=== PATIENT | male | born 1965 ===

== ENCOUNTER 2022-02-06 19:18 | Emergency (ER) | payer OTHER ==
--- OUTSIDE RECORDS SUMMARY | 2022-02-06 19:21 | XMS REPORT | Continuity of Care Document ---
:1965 Author Organization [facility] t Address [address] [place] [address] Care Team Providers Name Role Phone Amberly Brizuela MD Primary Care Physician MICHAEL SMITH Attending Clinician Unavailable Payers Payer Name Policy Type Policy Number Effective Date Expiration Date S ource Problems This patient has no known problems. Allergies, Adverse Reactions, Alerts Allergy Allergy Status Severity Reaction(s) Onset Inactive Treating Comm ents Source Name Type Date Date Clinician Penicill DA Active U 2018-05 [facility] ins 0-05 Clear 00:00: Katz 00 [facility] iodine DA Active U 2018-05 [facility] 0-05 Clear 00:00: Katz 00 [facility] codeine DA Active U 2018-05 [facility] 0-05 Clear 00:00: Katz 00 [facility] Codeine Propensi Active Anaphylaxis 2017-05 Me thodi ty to [facility]-06 st adverse 00:00: Hospita reaction 00 l s to drug Iodine Propensi Active Anaphylaxis 2017-05 Met hodi ty to 2 [facility] adverse 00:00: Hospita reaction 00 l s to drug Penicill Propensi Active Anaphylaxis 2017-05 M ethodi ins ty to 2 st adverse 00:00: Hospita reaction 00 l s to drug Family History Family Member Diagnosis Comments Start Date Stop Date Source Natural sister Diabetes [facility] Natural sister Cancer [facility] Natural father Cancer [facility] Natural mother Diabetes [facility] Paternal grandfather Heart disease [facility] Paternal grandmother Vision loss [facility] Social History Social Habit Start Date Stop Date Quantity Comments Source History of tobacco Smokes tobacco [facility] use daily Hospital Alcohol intake 2019-06-17 2019-06-17 Ex-drinker [facility] 00:00:00 00:00:00 (finding) Hospital Alcohol Comment 2019-06-17 2019-06-17 quit 2018 [facility] dist 00:00:00 00:00:00 Hospital Cigarettes smoked 2018-05-05 2018-05-05 [facility] current (pack per 00:00:00 00:00:00 Hospita l day) - Reported Cigarette 2018-05-05 2018-05-05 [facility] pack-years 00:00:00 00:00:00 Hospital Tobacco use and 2018-05-05 2018-05-05 Former smokeless Met [facility] exposure 00:00:00 00:00:00 tobacco user [facility] Sex Assigned At [birth year] [facility] 00:00:00 00:00:00 Hospital Smoking Status Start Date Stop Date Source Smokes tobacco daily 2018-05-05 00:00:00 [facility] Medications Ordered Filled Start Stop Current Ordering Indication Dosage Frequency Signature Comments Components Source Medication Medication Date Date Medication? Clinician (SIG) Name Name traMADol 2019- Yes [id number] 50mg Q8H Take 50 mg Me thodi (ULTRAM) 50 1-[address] mg tablet 11:19: every 8 Hospi ta 40 (eight) l hours as needed for moderate pain .acute pain. hydrALAZINE 2019-0 Yes 25mg Q6H Take 25 mg Methodi (APRESOLINE 1-[address] ) 25 MG 11:19: every 6 Hospita tablet 40 (six) l hours. For BP 160/90 diazePAM 2019-0 Yes 10mg Q24H Take 10 mg Met hodi (VALIUM) 10 1-[address] MG tablet 11:17: daily as Hosp erik 17 needed for l anxiety. lisinopril 2019-0 Yes 20mg Q.5D Take 20 mg M ethodi (PRINIVIL) 1-[address] 20 mg 11:17: (two) Hospita tablet 17 times a l day. clindamycin 2019-0 Yes 150mg Q.25D Take 150 [facility] (CLEOCIN) 1-[address] 150 MG 11:11: mouth 4 Hospita capsule 28 (four) l times a day. Pt started taking 06/10/19 for 7 days ferrous 2020-0 Yes 325mg QD Take 325 Metho di sulfate 325 1-[address] (65 FE) MG 09:12: mouth Hospit a tablet 35 daily with l breakfast. zolpidem 2020-0 Yes 10mg QD Take 10 mg Met hodi (AMBIEN) 10 1-[address] mg tablet 09:12: nightly as Ho spita 35 needed for l sleep. ibuprofen 2020-0 Yes 600mg Q6H Take 600 Met hodi (ADVIL) 600 1-[address] MG tablet 09:10: mouth Hospita 39 every 6 l (six) hours as needed for mild pain. diphenhydra 2020-0 Yes QD Take by Met hodi mine HCl 1-[address] (ALLERGY 09:06: daily. Hospita ORAL) 16 l pantoprazol 2020-0 Yes 40mg QD Take 40 mg Methodi e 1-[address] (PROTONIX) 09:06: daily. Hospi ta 40 MG EC 16 l tablet Immunizations Ordered Immunization Filled Immunization Date Status Commen ts Source Name Name Pneumococcal 2018-05-05 Completed [facility] Polysaccharide 00:00:00 Hospital Procedures This patient has no known procedures. Plan of Care Planned Activity Planned Date Details Comments Source Future Scheduled 2022-01-23 HEPATITIS B VACCINES Met [facility] Test 22:58:18 (1 of 3 - 3-dose series) [code = HEPATITIS B VACCINES (1 of 3 - 3-dose series)] Future Scheduled 2022-01-23 COVID-19 VACCINE (#1) [facility] Test 22:58:18 [code = COVID-19 VACCINE (#1)] Future Scheduled 2022-01-23 Hepatitis C screening [facility] Test 22:58:18 (procedure) [code = 856885058] Future Scheduled 2022-01-23 COLONOSCOPY SCREENING [facility] Test 22:58:18 [code = COLONOSCOPY SCREENING] Future Scheduled 2022-01-23 SHINGLES VACCINES (1 Met [facility] Test 22:58:18 of 2) [code = SHINGLES VACCINES (1 of 2)] Future Scheduled 2022-01-23 Pneumococcal Vaccine: [facility] Test 22:58:18 Pediatrics (0 to 5 Years) and At-Risk Patients (6 to 64 Years) (2 - PCV) [code = Pneumococcal Vaccine: Pediatrics (0 to 5 Years) and At-Risk Patients (6 to 64 Years) (2 - PCV)] Future Scheduled 2022-01-23 INFLUENZA VACCINE Method [facility] Test 22:58:18 [code = INFLUENZA VACCINE] Encounters Start End Encounter Admission Attending Care Care Encounter Source Date/Time Date/Time Type Type Clinicians Facility Department ID 2019-06-17 2019-06-17 Emergency SARAH, [facility] [id number] [place] 00:00:00 00:00:00 MICHAEL [address] Results Test Description Test Time Test Comments Results Result Comments Source CBC W/AUTO DIFF 2019-02-25 20:19:00 Test Item Value Reference Range Interpretation Comme nts WHITE BLOOD CELL (test code = WBC) 6.72 x10 3/uL 4.5-11.0 N RED BLOOD CELL (test code = RBC) 4.42 x10 6/uL 4.00-5.60 N HEMOGLOBIN (test code = HGB) 18.4 g/dL 12.5-16.9 H HEMATOCRIT (test code = HCT) 49.4 % 37.5-50.7 N MEAN CELL VOLUME (test code = MCV) 111.8 fL 81.0-99.0 H MEAN CELL HGB (test code = MCH) 41.6 pg 27.0-33.0 H MEAN CELL HGB CONCETRATION (test code = MCHC) 37.2 g/dL 33.0-37. 0 H RED CELL DISTRIBUTION WIDTH CV (test code = RDW) 14.6 % 11.5- 14.5 H RED CELL DISTRIBUTION WIDTH SD (test code = RDW-SD) 61.5 fL 37 .0-54.0 H PLATELET COUNT (test code = PLT) 120 x10 3/uL 150-400 L IMMATURE PLATELET FRACTION (test code = IPF) 1.9 % 0.9-11.2 N MEAN PLATELET VOLUME (test code = MPV) 9.3 fL 7.0-9.0 H NEUTROPHIL % (test code = NT%) 66.3 % 56.0-77.0 N IMMATURE GRANULOCYTE % (test code = IG%) 0.1 % 0.0-2.0 N LYMPHOCYTE % (test code = LY%) 23.8 % 14.0-32.0 N MONOCYTE % (test code = MO%) 8.2 % 4.8-9.0 N EOSINOPHIL % (test code = EO%) 0.1 % 0.3-3.7 L BASOPHIL % (test code = BA%) 1.5 % 0.0-2.0 N NUCLEATED RBC % (test code = NRBC%) 0.0 % 0-0 N NEUTROPHIL # (test code = NT#) 4.45 x10 3/uL 2.0-7.6 N IMMATURE GRANULOCYTE # (test code = IG#) 0.01 x10 3/uL 0.00-0.03 N LYMPHOCYTE # (test code = LY#) 1.60 x10 3/uL 1.0-3.8 N MONOCYTE # (test code = MO#) 0.55 x10 3/uL 0.1-0.8 N EOSINOPHIL # (test code = EO#) 0.01 x10 3/uL 0.0-0.2 N BASOPHIL # (test code = BA#) 0.10 x10 3/uL 0.0-0.2 N NUCLEATED RBC # (test code = NRBC#) 0.00 x10 3/uL 0.0-0.1 N MANUAL DIFF REQUIRED (test code = MDIFF) NO RBC [id number] 20:19:00 Test Item Value Reference Range Interpretation Comments ANISOCYTOSIS (test code = ANISO) 1+ MACROCYTOSIS (test code = MACR) 1+ COMPREHENSIVE METABOLIC [id number] 17:59:00 Test Item Value Reference Range Interpretation Comments SODIUM (test code = NA) 135 mEq/L 134-147 N POTASSIUM (test code = 3.6 mEq/L 3.4-5.0 N K) CHLORIDE (test code = 100 mEq/L 100-108 N CL) CARBON DIOXIDE (test 30 mEq/L 21-33 N code = CO2) ANION GAP (test code = 9 0-20 N GAP) GLUCOSE (test code = 89 mg/dL 70-110 N GLU) BLOOD UREA NITROGEN 7 mg/dL 7-18 N (test code = BUN) GLOMERULAR FILTRATION 100.4 90-95 H Units of measure = RATE (test code = GFR) ml/mi n/1.73 m2 CREATININE (test code = 0.8 mg/dL 0.6-1.3 N CREAT) TOTAL PROTEIN (test 8.0 g/dL 6.4-8.2 N code = PROT) ALBUMIN (test code = 3.10 g/dL 3.4-5.0 L ALB) CALCIUM (test code = 8.4 mg/dL 8.0-10.5 N CA) BILIRUBIN TOTAL (test 1.8 MG/DL <1.5 H code = BILT) SGOT/AST (test code = 54 IUnit/L 15-37 H AST) SGPT/ALT (test code = 35 IUnit/L 15-65 N ALT) ALKALINE PHOSPHATASE 123 IUnit/L 20-125 N TOTAL (test code = ALKP) COMPREHENSIVE METABOLIC [id number] 17:42:00 Test Item Value Reference Range Interpretation Comments SODIUM (test code = NA) 135 mEq/L 134-147 N POTASSIUM (test code = K) 3.6 mEq/L 3.4-5.0 N CHLORIDE (test code = CL) 100 mEq/L 100-108 N CARBON DIOXIDE (test code = CO2) 30 mEq/L 21-33 N ANION GAP (test code = GAP) 9 0-20 N GLUCOSE (test code = GLU) 89 mg/dL 70-110 N BLOOD UREA NITROGEN (test code = 7 mg/dL 7-18 N BUN) GLOMERULAR FILTRATION RATE (test 90-95 code = GFR) CREATININE (test code = CREAT) mg/dL 0.6-1.3 TOTAL PROTEIN (test code = PROT) g/dL 6.4-8.2 ALBUMIN (test code = ALB) g/dL 3.4-5.0 CALCIUM (test code = CA) 8.4 mg/dL 8.0-10.5 N BILIRUBIN TOTAL (test code = BILT) MG/DL <1.5 SGOT/AST (test code = AST) IUnit/L 15-37 SGPT/ALT (test code = ALT) IUnit/L 15-65 ALKALINE PHOSPHATASE TOTAL (test IUnit/L 20-125 code = ALKP) - XR CHEST 1 [id number] 17:42:00 FAX: Jimbo Cooper MD [phone] [place]: St: PRE Name: CARMENZA BURR [facility] [place] : 1965 Age/S: 53/M [address] [place] [address] Unit #: [id number] Loc: [place] [address] Phys: Jimbo Stock MD Acct: [id number] Dis Date: Status: PRE ER PHONE #: [phone] Exam Date: 02/25/2019 173 FAX #: Reason: weakness EXAMS: CPT CODE: [id number] XR CHEST 1 V [id number] PROCEDURE: Chest Radiograph. Clinical Indication: Weakness, hypertension. Comparison: None. FINDINGS: The chest shows normal lung volumes without interstitial or airspace opacities, pleural effusions or pneumothorax. The cardiac silhouette is slightly enlarged. Degenerative change involves the thoracic spine. IMPRESSION: 1. No chest radiographic evidence of acute cardiopulmonary disease. SL: [id number] at 4102 Reported and signed by: Sandro Dover M.D.CC: Jimbo Stock MD Technologist: HARDIK Pedersen RT(R) Trnscrd Date/Time/By: 02/25/2019 (678) : By: GuerreroTDVero Orig Print D/T: S: 02/25/2019 (0368) PAGE 1 Signed ReportTROPONIN-I [id number] 17:34:00 Test Item Value Reference Range Interpretation Comments TROPONIN-I RAPID 0.00 ng/mL 0.00-0.08 N Performed b y certified (test code = squaring machine operator at [facility] TROPIRAP) Ctr Negative: < = 0.08 Positive: >= 0. 09An elevated tropon in value alone is not kc fficient todiagnose a my ocardial infarction. Rat her, the patient sclinic al presentation (h istory, physical exam) and ECGshould be us ed in conjunction wit h troponin in thediagnosti c evaluation of s uspected myocardial infa rction. Aserial samplin g protocol is recommended to facilitate the identification of temporal changes in trop onin levels characteristic of NV. CBC W/AUTO [id number] 17:28:00 Test Item Value Reference Range Interpretation Comments WHITE BLOOD CELL (test code = 6.72 x10 3/uL 4.5-11.0 N WBC) RED BLOOD CELL (test code = 4.42 x10 6/uL 4.00-5.60 N RBC) HEMOGLOBIN (test code = HGB) 18.4 g/dL 12.5-16.9 H HEMATOCRIT (test code = HCT) 49.4 % 37.5-50.7 N MEAN CELL VOLUME (test code = 111.8 fL 81.0-99.0 H MCV) MEAN CELL HGB (test code = MCH) 41.6 pg 27.0-33.0 H MEAN CELL HGB CONCETRATION 37.2 g/dL 33.0-37.0 H (test code = MCHC) RED CELL DISTRIBUTION WIDTH CV 14.6 % 11.5-14.5 H (test code = RDW) RED CELL DISTRIBUTION WIDTH SD 61.5 fL 37.0-54.0 H (test code = RDW-SD) PLATELET COUNT (test code = 120 x10 3/uL 150-400 L PLT) IMMATURE PLATELET FRACTION 1.9 % 0.9-11.2 N (test code = IPF) MEAN PLATELET VOLUME (test code 9.3 fL 7.0-9.0 H = MPV) NEUTROPHIL % (test code = NT%) 66.3 % 56.0-77.0 N IMMATURE GRANULOCYTE % (test 0.1 % 0.0-2.0 N code = IG%) LYMPHOCYTE % (test code = LY%) 23.8 % 14.0-32.0 N MONOCYTE % (test code = MO%) 8.2 % 4.8-9.0 N EOSINOPHIL % (test code = EO%) 0.1 % 0.3-3.7 L BASOPHIL % (test code = BA%) 1.5 % 0.0-2.0 N NUCLEATED RBC % (test code = 0.0 % 0-0 N NRBC%) NEUTROPHIL # (test code = NT#) 4.45 x10 3/uL 2.0-7.6 N IMMATURE GRANULOCYTE # (test 0.01 x10 3/uL 0.00-0.03 N code = IG#) LYMPHOCYTE # (test code = LY#) 1.60 x10 3/uL 1.0-3.8 N MONOCYTE # (test code = MO#) 0.55 x10 3/uL 0.1-0.8 N EOSINOPHIL # (test code = EO#) 0.01 x10 3/uL 0.0-0.2 N BASOPHIL # (test code = BA#) 0.10 x10 3/uL 0.0-0.2 N NUCLEATED RBC # (test code = 0.00 x10 3/uL 0.0-0.1 N NRBC#) MANUAL DIFF REQUIRED (test code NO = MDIFF) RBC [id number] 17:28:00 Test Item Value Reference Range Interpretation Comments ANISOCYTOSIS (test code = ANISO) CBC W/AUTO [id number] 17:28:00 Test Item Value Reference Range Interpretation Comments WHITE BLOOD CELL (test code = 6.72 x10 3/uL 4.5-11.0 N WBC) RED BLOOD CELL (test code = 4.42 x10 6/uL 4.00-5.60 N RBC) HEMOGLOBIN (test code = HGB) 18.4 g/dL 12.5-16.9 H HEMATOCRIT (test code = HCT) 49.4 % 37.5-50.7 N MEAN CELL VOLUME (test code = 111.8 fL 81.0-99.0 H MCV) MEAN CELL HGB (test code = MCH) 41.6 pg 27.0-33.0 H MEAN CELL HGB CONCETRATION 37.2 g/dL 33.0-37.0 H (test code = MCHC) RED CELL DISTRIBUTION WIDTH CV 14.6 % 11.5-14.5 H (test code = RDW) RED CELL DISTRIBUTION WIDTH SD 61.5 fL 37.0-54.0 H (test code = RDW-SD) PLATELET COUNT (test code = 120 x10 3/uL 150-400 L PLT) IMMATURE PLATELET FRACTION 1.9 % 0.9-11.2 N (test code = IPF) MEAN PLATELET VOLUME (test code 9.3 fL 7.0-9.0 H = MPV) NEUTROPHIL % (test code = NT%) 66.3 % 56.0-77.0 N IMMATURE GRANULOCYTE % (test 0.1 % 0.0-2.0 N code = IG%) LYMPHOCYTE % (test code = LY%) 23.8 % 14.0-32.0 N MONOCYTE % (test code = MO%) 8.2 % 4.8-9.0 N EOSINOPHIL % (test code = EO%) 0.1 % 0.3-3.7 L BASOPHIL % (test code = BA%) 1.5 % 0.0-2.0 N NUCLEATED RBC % (test code = 0.0 % 0-0 N NRBC%) NEUTROPHIL # (test code = NT#) 4.45 x10 3/uL 2.0-7.6 N IMMATURE GRANULOCYTE # (test 0.01 x10 3/uL 0.00-0.03 N code = IG#) LYMPHOCYTE # (test code = LY#) 1.60 x10 3/uL 1.0-3.8 N MONOCYTE # (test code = MO#) 0.55 x10 3/uL 0.1-0.8 N EOSINOPHIL # (test code = EO#) 0.01 x10 3/uL 0.0-0.2 N BASOPHIL # (test code = BA#) 0.10 x10 3/uL 0.0-0.2 N NUCLEATED RBC # (test code = 0.00 x10 3/uL 0.0-0.1 N NRBC#) MANUAL DIFF REQUIRED (test code NO = MDIFF) RBC [id number] 17:28:00 Test Item Value Reference Range Interpretation Comments ANISOCYTOSIS (test code = ANISO)
[2022-02-06 20:48] LABS: Urine Blood 1+ (Negative); Urine Glucose Trace (Negative); Urine Protein 2+ (Negative); Urine pH 5.5 (5.0-7.0)
--- NOTE | 2022-02-06 21:19 | RAD REPORT ---
EXAM DESCRIPTION: RAD - Chest Single View - 02/06/2022 8:58 pm CLINICAL HISTORY: ABDOMINAL DISTENTION COMPARISON: No comparisons FINDINGS: Lines: None. Lungs: No evidence of edema or pneumonia. Pleural: No significant pleural effusions or pneumothorax. Cardiac: The heart size is within normal limits. Mediastinum: Within normal limits. Bones: No acute fractures. Other: None IMPRESSION: No acute cardiopulmonary disease.
[2022-02-06 21:21] LABS: SARS-CoV-2 Antigen Rapid Res Negative (Negative)
[2022-02-06 21:33] LABS: Lymphocytes % 8.2 % (15.3-44.8); MCV 120.8 fL (80-100); MPV 7.1 fL (7.6-11.3); RBC Red Blood Cell Count 3.06 M/uL (4.33-5.43)
[2022-02-06 21:36] LABS: Protime INR 1.66
[2022-02-06 21:50] LABS: Urine Bacteria <20 /HPF (<20); Urine Crystals Unidentified Few /HPF (None Seen); Urine Mucus 1+ /HPF (None Seen); Urine RBC >50 /HPF (None Seen)
[2022-02-06 22:03] LABS: ALT/SGPT 36 U/L (12-78); AST/SGOT 106 U/L (15-37); Alkaline Phosphatase 222 U/L (45-117); BUN Blood Urea Nitrogen 22 mg/dL (7-18); Bicarbonate 25 mmol/L (21-32); Glomerular Filtration Rate 63 ml/min (=/>90); Glucose Level 105 mg/dL (74-106); Potassium 3.2 mmol/L (3.5-5.1); Protein, Total 9.3 g/dL (6.4-8.2); Sodium Level 135 mmol/L (136-145); Troponin High Sensitivity 4.3 pg/mL (<58.9)
[2022-02-06 22:12] LABS: Bilirubin Total 21.3 mg/dL (0.2-1.0)
[2022-02-06] MEDS ORDERED: FENTANYL CITR 100 MCG/2 ML ONE (23:11)
[2022-02-06] MEDS ORDERED: CEFTRIAXONE 2000 MG/VIAL ONE (23:11)
[2022-02-06] MEDS ORDERED: NA CHLORIDE 0.9% 500 ML ONE (23:11)
[2022-02-06] MEDS ORDERED: NA CHLORIDE 0.9% 100 ML ONE (23:11)
--- NOTE | 2022-02-06 23:15 | RAD REPORT ---
EXAM DESCRIPTION: CTChest Abd Pelvis Wo Con - 02/06/2022 11:03 pm CLINICAL HISTORY: SOB, abdominal distension COMPARISON: No comparisonsNo comparisons TECHNIQUE: CT of the chest, abdomen, and pelvis was performed without contrast. All CT scans are performed using dose optimization technique as appropriate and may include automated exposure control or mA/KV adjustment according to patient size. FINDINGS: Thorax: Chest Wall: No abnormal mass Lungs: No acute abnormality. Pleura: No effusions or pneumothorax. Claire/Mediastinum: No lymphadenopathy. Lower paraesophageal varices. Aorta/Pulmonary Arteries: Unremarkable Heart: Normal size. Multi-vessel coronary artery disease. Abdomen/Pelvis: Liver: Cirrhotic liver morphology with multiple hypoattenuating areas in liver concerning for multifo rell hepatocellular carcinoma but evaluation with contrast is necessary. . Biliary: No biliary ductal dilatation. Cholelithiasis. Stomach: No significant focal abnormality. Duodenum: No significant focal abnormality. Pancreas: No significant abnormality. Spleen: Splenomegaly Adrenal: No suspicious lesions. Kidney/ureter: No hydronephrosis. 13 mm stone in the left kidney. Retroperitoneum: No retroperitoneal adenopathy. Vascular: No aneurysm. Atherosclerosis. Bowel: No significant focal abnormality. Peritoneum: Moderate ascites. Bladder: Grossly unremarkable. Reproductive: No adnexal masses. Bones: No acute fracture. Remote left-sided rib fractures. Other: Mild body wall edema. IMPRESSION: 1. Cirrhosis with evidence of portal hypertension including splenomegaly and moderate as cites. Masslike areas of hypoattenuation in the right hepatic lobe concerning for underlying neoplasm . Evaluation with multiphase hepatic protocol CT or MRI is recommended. This need not be emergent. 2. No acute findings within the chest.
--- NOTE | 2022-02-07 00:01 | EDPHYS ---
Physician Documentation [facility] Name: Gamaliel Burr Age: 56 yrs Sex: Male : 1965 Arrival Date: 02/06/2022 Time: 19:23 Bed 28 Private MD: ED Physician Robi Barboza HPI: 02/06 20:15 This 56 yrs old Unknown Male presents to ER via Ambulatory with complaints of Flank cp Pain, Abdominal Pain. 20:15 The patient presents with abdominal pain in the lower abdomen, abdominal distention cp that is diffuse. Onset: The symptoms/episode began/occurred gradually, and became worse over past several weeks. 20:15 The symptoms do not radiate. Associated signs and symptoms: Pertinent negatives: blood cp in stools, chest pain, constipation, diarrhea, fever, headache, palpitations, vomiting. The symptoms are described as constant. 20:15 Severity of pain: in the emergency department the pain is unchanged despite home cp interventions. 20:15 Patient reports history of alcoholic cirrhosis. Reports last visit with a physician was cp 4 years ago. Quit drinking alcohol about 2 weeks ago. Historical: - Allergies: 19:59 PENICILLINS; vc1 19:59 Codeine; vc1 19:59 Iodine; vc1 - Home Meds: 19:59 lisinopril Oral [Active]; Soma 250 mg Oral tab 2 tab [Active]; Valium 7.5 mg Oral tab vc1 [Active]; - PMHx: 19:59 Myocardial infarction; at 25 YO; Hypertensive disorder; vc1 - Immunization history:: Adult Immunizations up to date. - Social history:: Smoking status: Patient reports the use of cigarette tobacco products, 6-7, Patient uses Quit drinking a few weeks ago, would drink 1/2 gallon every 3-4 days. ROS: 20:20 Constitutional: Negative for body aches, chills, fever, poor PO intake. cp 20:20 Eyes: Negative for injury, pain, redness, and discharge. cp 20:20 Neck: Negative for pain with movement, pain at rest, stiffness. 20:20 Cardiovascular: Positive for edema, Negative for chest pain, palpitations. 20:20 Respiratory: Positive for shortness of breath, Negative for cough, wheezing. 20:20 Abdomen/GI: Positive for abdominal pain, abdominal distension, Negative for vomiting, diarrhea, constipation, black/tarry stool, rectal bleeding. 20:20 Back: Negative for pain at rest, pain with movement. 20:20 Neuro: Negative for altered mental status, dizziness, headache, syncope, weakness. 20:20 All other systems are negative. Exam: 20:25 Constitutional: The patient appears in no acute distress, alert, awake, cp non-diaphoretic, non-toxic, well developed, well nourished, obese, uncomfortable. 20:25 Head/Face: Normocephalic, atraumatic. cp 20:25 Eyes: Periorbital structures: appear normal, Pupils: equal, round, and reactive to light and accomodation, Extraocular movements: intact throughout, Sclera: icterus, is present, Lids and lashes: appear normal, bilaterally. 20:25 ENT: External ear(s): are unremarkable, Nose: is normal, Mouth: Lips: moist, Oral mucosa: pink and intact, moist, Posterior pharynx: Airway: no evidence of obstruction, patent, swelling, is not appreciated, erythema, is not appreciated, exudate, is not appreciated. 20:25 Neck: ROM/movement: is normal, is supple, without pain, no range of motions limitations, no meningismus. 20:25 Chest/axilla: Inspection: normal. 20:25 Cardiovascular: Rate: normal, Rhythm: regular, Edema: ankle edema, that is mild, JVD: is not appreciated. 20:25 Respiratory: the patient does not display signs of respiratory distress, Respirations: normal, no use of accessory muscles, no retractions, labored breathing, is not present, Breath sounds: are clear throughout, no decreased breath sounds, no stridor, no wheezing. 20:25 Abdomen/GI: Inspection: distension, that is severe, Bowel sounds: active, all quadrants, Palpation: soft, in all quadrants, moderate abdominal tenderness, in the right lower quadrant and left lower quadrant, rebound tenderness, is not appreciated, voluntary guarding, is elicited in the right lower quadrant and left lower quadrant. 20:25 Back: pain, is absent, ROM is normal. 20:25 Skin: Appearance: Color: jaundiced, Temperature: warm. 20:25 Neuro: Orientation: to person, place \T\ time. Mentation: is normal, Cerebellar function: is grossly normal, Motor: moves all fours, strength is normal, Sensation: is normal, Gait: is steady, at a normal pace, without difficulty. 21:05 ECG was reviewed by the Attending Physician. Vital Signs: 19:57 BP 129 / 77; Pulse 95; Resp 17; Temp 98.3(O); Pulse Ox 99% ; Height 5 ft. 7 in. (170.18 vc1 cm); Pain 9/10; 20:13 Weight 111.6 kg; mh5 21:11 BP 126 / 78; Pulse 95; Resp 18; Pulse Ox 100% on R/A; tw5 21:30 BP 125 / 77; tw5 21:45 BP 107 / 73; tw5 22:55 BP 134 / 116; Pulse 96; Resp 18; Pulse Ox 100% on R/A; Pain 10/10; tw5 23:51 BP 116 / 66; Pulse 90; Resp 17; Pulse Ox 100% on R/A; hb 02/07 01:05 Pain 8/10; tw5 01:36 Pain 7/10; tw5 02/06 20:13 Body Mass Index 38.53 (111.60 kg, 170.18 cm) [facility] MDM: 02/06 20:08 Patient medically screened. rose mary 21:00 Differential diagnosis: cholecystitis, Cholelithiasis, pancreatitis, SBP. 23:55 Data reviewed: vital signs, nurses notes, lab test result(s), EKG, radiologic studies, cp CT scan, I have discussed the patient's presentation/case with the attending Emergency Department Physician; and as a result, I will transfer patient. 23:55 Test interpretation: by ED physician or midlevel provider: ECG, plain radiologic cp studies. 02/06 20:41 Order name: SARS RAPID; Complete Time: 21:36 [facility] 02/06 20:47 Order name: Blood Culture Adult (2) cp 02/06 20:47 Order name: CBC with Diff; Complete Time: 21:53 02/06 23:20 Interpretation: Normal except: WBC 12.40; RBC 3.06; HGB 13.0; HCT 37.0; MCV 120.8; MCH cp 42.6; RDW 18.1; MPV 7.1; MARIA EUGENIA% 82.4; LYM% 8.2; NEUT A 10.3. 02/06 20:47 Order name: CMP; Complete Time: 22:14 02/06 20:47 Order name: Lactate; Complete Time: 22:44 cp 02/06 22:44 Interpretation: Reviewed. cp 02/06 20:47 Order name: Protime (+inr); Complete Time: 21:38 cp 02/06 20:47 Order name: Ptt, Activated; Complete Time: 21:38 cp 02/06 20:47 Order name: Urine Culture cp 02/06 20:47 Order name: Urine Microscopic Only; Complete Time: 21:53 cp 02/06 20:47 Order name: Troponin High Sensitivity; Complete Time: 22:44 cp 02/06 20:47 Order name: Procalcitonin; Complete Time: 22:44 cp 02/06 20:47 Order name: AMMONIA; Complete Time: 23:52 cp 02/06 20:47 Order name: ETOH Level; Complete Time: 22:44 cp 02/06 20:47 Order name: Tylenol Level; Complete Time: 22:44 cp 02/06 20:47 Order name: Chest Single View XRAY; Complete Time: 21:36 02/06 20:47 Order name: Cardiac monitoring; Complete Time: 21:15 02/06 20:47 Order name: EKG - Nurse/Tech; Complete Time: 21:15 02/06 20:47 Order name: IV Saline Lock - Large Bore; Complete Time: 21:15 02/06 20:47 Order name: Labs collected and sent; Complete Time: 21:15 02/06 20:48 Order name: Urine Dipstick-Ancillary; Complete Time: 21:36 EDMS 02/06 21:36 Interpretation: Normal except: UKET 1+; UBLD 1+; UPROT 2+; UESTR 3+. cp 02/06 20:51 Order name: Urine Dipstick-Ancillary EDMS 02/06 22:47 Order name: CT Chest Abdomen Pelvis W/O Contrast; Complete Time: 23:18 cp 02/06 22:54 Order name: Lipase; Complete Time: 23:18 02/06 22:54 Order name: LAB Add On cp 02/07 01:29 Order name: Lactate Sepsis 2 HR Follow-up EDMS 02/06 20:47 Order name: O2 Per Protocol; Complete Time: 21:15 02/06 20:47 Order name: O2 Sat Monitoring; Complete Time: 21:15 02/06 20:47 Order name: Urine Dipstick-Ancillary (obtain specimen); Complete Time: 20:48 cp EC:05 Rate is 93 beats/min. Rhythm is regular. CA interval is normal. QRS interval is normal. cp QT interval is prolonged at 382 msec. Interpreted by me. Reviewed by me. Administered Medications: 23:14 Drug: Rocephin (cefTRIAXone) 2 grams Route: IV; Rate: calculated rate; Site: right tw5 antecubital; 02/07 01:05 Follow up: Response: No adverse reaction; IV Status: Completed infusion; IV Intake: tw5 100ml 02/06 23:14 Drug: NS 0.9% 1000 ml Route: IV; Rate: 500 ml/hr; Site: right antecubital; tw5 02/07 01:05 Follow up: Response: No adverse reaction; IV Status: Completed infusion tw5 02/06 23:14 Drug: fentaNYL (PF) 25 mcg Route: IVP; Site: right antecubital; tw5 23:52 Follow up: Response: No adverse reaction hb 02/07 01:05 Follow up: Pain 8/10 Adult; Response: No adverse reaction; Pain is decreased; RASS: tw5 Alert and Calm (0) 01:05 Drug: fentaNYL (PF) 50 mcg Route: IVP; Site: left antecubital; tw5 01:36 Follow up: Pain 7/10 Adult; Response: No adverse reaction; Pain is decreased; RASS: tw5 Alert and Calm (0) Disposition Summary: 02/07/22 00:00 Transfer Ordered Transfer Location: [facility] cp Reason: Higher level of care cp Condition: Stable cp Problem: new cp Symptoms: have improved cp Accepting Physician: Doctor(02/07/22 01:37) tw5 Diagnosis - Hepatic failure, unspecified without coma cp - Spontaneous bacterial peritonitis cp Forms: - Medication Reconciliation Form cp - SBAR form cp Signatures: Dispatcher [employer] EDRobi Kessler MD MD cha Attema, Lee, 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 cp tw5 02/07 01:28 00:00 Doctor cp cp 01:37 01:28 Doctor cp tw5
--- NOTE | 2022-02-07 00:01 | ER ---
Nurse's Notes [facility] Name: Gamaliel Burr Age: 56 yrs Sex: Male : 1965 Arrival Date: 02/06/2022 Time: 19:23 Bed 28 Private MD: Diagnosis: Hepatic failure, unspecified without coma;Spontaneous bacterial peritonitis Presentation: 02/06 19:57 Chief complaint: Patient states: "The last few weeks my stomach has started swelling, I vc1 am having pain all the way around.". Coronavirus screen: Vaccine status: Patient reports receiving the 2nd dose of the covid vaccine. 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 Ebola Screen: No symptoms or risks identified at this time. Initial Sepsis Screen: Does the patient meet any 2 criteria? HR > 90 bpm. No. Patient's initial sepsis screen is negative. Does the patient have a suspected source of infection? No. Patient's initial sepsis screen is negative. Risk Assessment: Do you want to hurt yourself or someone else? Patient reports no desire to harm self or others. Onset of symptoms is unknown. 19:57 Method Of Arrival: Ambulatory vc1 19:57 Acuity: MARIAELENA 2 vc1 Triage Assessment: 20:02 General: Appears in no apparent distress. Behavior is calm. Pain: Complains of pain in vc1 abdomen. EENT: No deficits noted. Neuro: Level of Consciousness is awake, alert, obeys commands, Oriented to person, place, time, situation, Appropriate for age. Cardiovascular: No deficits noted. Respiratory: Airway is patent Respiratory effort is even, unlabored, Respiratory pattern is regular, symmetrical. GI: Abdomen is noted to have ascites. : No deficits noted. Derm: Skin is jaundiced. Historical: - Allergies: 19:59 PENICILLINS; vc1 19:59 Codeine; vc1 19:59 Iodine; vc1 - Home Meds: 19:59 lisinopril Oral [Active]; Soma 250 mg Oral tab 2 tab [Active]; Valium 7.5 mg Oral tab vc1 [Active]; - PMHx: 19:59 Myocardial infarction; at 25 YO; Hypertensive disorder; vc1 - Immunization history:: Adult Immunizations up to date. - Social history:: Smoking status: Patient reports the use of cigarette tobacco products, 6-7, Patient uses Quit drinking a few weeks ago, would drink 1/2 gallon every 3-4 days. Screenin:11 Abuse screen: Denies threats or abuse. Denies injuries from another. Nutritional tw5 screening: No deficits noted. Tuberculosis screening: No symptoms or risk factors identified. Fall Risk None identified. Assessment: 20:42 General: called lab, spoke to heath about getting second set of blood cultures. tw5 20:56 General: "The pain just got so unbearable I couldn't stand it anymore.". tw5 21:11 Pain: Pain. Neuro: Level of Consciousness is awake, alert, obeys commands, Oriented to 5 person, place, time, situation. Respiratory: Airway is patent Trachea midline Respiratory effort is even, unlabored. Derm: Skin is intact. 22:55 General: Patient states he feels more comfortable sitting in a chair at the bedside.. tw5 23:51 Reassessment: Patient appears in no apparent distress at this time. Patient and/or hb family updated on plan of care and expected duration. Pain level reassessed. Patient is alert, oriented x 3, equal unlabored respirations, skin warm/dry/pink. 02/07 01:37 Reassessment: Patient states feeling better. 5 Vital Signs: 02/06 19:57 BP 129 / 77; Pulse 95; Resp 17; Temp 98.3(O); Pulse Ox 99% ; Height 5 ft. 7 in. (170.18 vc1 cm); Pain 9/10; 20:13 Weight 111.6 kg; mh5 21:11 BP 126 / 78; Pulse 95; Resp 18; Pulse Ox 100% on R/A; tw5 21:30 BP 125 / 77; tw5 21:45 BP 107 / 73; tw5 22:55 BP 134 / 116; Pulse 96; Resp 18; Pulse Ox 100% on R/A; Pain 10/10; tw5 23:51 BP 116 / 66; Pulse 90; Resp 17; Pulse Ox 100% on R/A; hb 02/07 01:05 Pain 8/10; tw5 01:36 Pain 7/10; tw5 02/06 20:13 Body Mass Index 38.53 (111.60 kg, 170.18 cm) [facility] ED Course: 02/06 19:23 Patient arrived in ED. bp1 19:59 Triage completed. vc1 20:04 Arm band placed on right wrist. vc1 20:08 Robi Garcia PA is PHCP. cp 20:08 Robi Barboza MD is Attending Physician. cp 20:25 Mayra Bazan is Primary Nurse. tw5 20:59 Chest Single View XRAY In Process Unspecified. EDMS 21:11 Patient has correct armband on for positive identification. Placed in gown. Bed in low tw5 position. Call light in reach. Side rails up X 1. Client placed on continuous cardiac and pulse oximetry monitoring. NIBP monitoring applied. Door closed. Warm blanket given. Verbal reassurance given. 21:11 Inserted saline lock: 20 gauge in right antecubital area, using aseptic technique. tw5 Blood collected. ultrasound guided IV. 21:12 Awaiting lab results. tw5 21:12 Initial lab(s) drawn, by me, sent to lab. Second set of blood cultures drawn by ia, tw5 COVID swab sent to lab. 21:15 AMMONIA Sent. tw5 21:15 Procalcitonin Sent. tw5 21:15 ETOH Level Sent. tw5 21:15 Tylenol Level Sent. tw5 21:15 Troponin High Sensitivity Sent. tw5 21:15 Blood Culture Adult (2) Sent. tw5 21:15 CBC with Diff Sent. tw5 21:15 CMP Sent. tw5 21:15 Lactate Sent. tw5 21:15 Protime (+inr) Sent. tw5 21:15 Ptt, Activated Sent. tw5 21:15 Urine Culture Sent. tw5 21:15 SARS RAPID Sent. tw5 21:15 Urine Dipstick-Ancillary Sent. tw5 21:23 travel registered nurse oncology on. Pulse ox on. NIBP on. mh5 21:23 EKG done, by ED staff, reviewed by Robi RAMOS. mh5 21:23 Urine Microscopic Only Sent. mh5 22:57 LAB Add On Sent. tw5 22:57 Lipase Sent. tw5 22:59 Lipase Sent. hb 23:05 CT Chest Abdomen Pelvis W/O Contrast In Process Unspecified. EDMS 23:14 AMMONIA Sent. tw5 23:14 Blood Culture Adult (2) Sent. tw5 02/07 00:27 No provider procedures requiring assistance completed. Patient transferred, IV remains tw5 in place. Administered Medications: 02/06 23:14 Drug: Rocephin (cefTRIAXone) 2 grams Route: IV; Rate: calculated rate; Site: right tw5 antecubital; 02/07 01:05 Follow up: Response: No adverse reaction; IV Status: Completed infusion; IV Intake: tw5 100ml 02/06 23:14 Drug: NS 0.9% 1000 ml Route: IV; Rate: 500 ml/hr; Site: right antecubital; tw5 02/07 01:05 Follow up: Response: No adverse reaction; IV Status: Completed infusion tw5 02/06 23:14 Drug: fentaNYL (PF) 25 mcg Route: IVP; Site: right antecubital; tw5 23:52 Follow up: Response: No adverse reaction hb 02/07 01:05 Follow up: Pain 8/10 Adult; Response: No adverse reaction; Pain is decreased; RASS: tw5 Alert and Calm (0) 01:05 Drug: fentaNYL (PF) 50 mcg Route: IVP; Site: left antecubital; tw5 01:36 Follow up: Pain 7/10 Adult; Response: No adverse reaction; Pain is decreased; RASS: tw5 Alert and Calm (0) Medication: 02/06 21:11 VIS not applicable for this client. tw5 Intake: 02/07 01:05 IV: 100ml; Total: 100ml. tw5 Outcome: 00:00 ER care complete, transfer ordered by MD. parks 00:27 Transferred to [facility]. tw5 00:27 Transferred Note: report called to [place] at [facility] 00:27 Condition: stable 00:27 Instructed on the need for transfer. 01:37 Transferred Note: bedside report given to EMS tw5 01:37 Patient left the ED. tw5 Signatures: Dispatcher [employer] EDMS Robi Garcia PA PA cp Baxter, Heather, RN RN hb Martinez, Maria 5 Aicha Dueñas Tiffany 5 Danay Larose RN RN vc1
[2022-02-07] MEDS ORDERED: FENTANYL CITR 100 MCG/2 ML ONE (01:08)
[2022-02-08 11:49] VITALS: TEMP 98.3
[2022-02-08 12:01] VITALS: O2SAT 100
[2022-02-08 12:09] VITALS: BP 116/66
--- NOTE | 2022-02-11 06:45 | EKG ---
Test Date: 2022-02-06 Test Time: 21:03:03 [employer] Livestock Farm Manager: MOLINA MEASUREMENT RESULTS: Intervals: Rate: 93 ID: [id number] QRSD: 82 QT: 382 QTc: 474 [place]: P: 63 ID: [id number] QRS: 17 T: 85 INTERPRETIVE STATEMENTS: Normal sinus rhythm Nonspecific ST and T wave abnormality Prolonged QT Abnormal ECG No previous ECG available for comparison Electronically Signed On 02-11-22 06:33:04 CDT by Gary Dwyer
== END 2022-02-07 01:37 | disposition short-term general hospital (02) ==
LOC: ER 19:18
DX: K72.90 Hepatic failure, unspecified without coma (principal); K65.2 Spontaneous bacterial peritonitis; I10 Essential (primary) hypertension; F17.210 Nicotine dependence, cigarettes, uncomplicated; Z20.822 Contact with and (suspected) exposure to COVID-19
CPT/HCPCS: 93005; 87040 ×2; 87088; 85025; 87086; 36415; 80320; 82140; 80329; 85610; 83605 ×2; 85730; 84484; 83690; 80053; 84145; 71250; 74176; 71045; 99285; 87811; J3010 ×2; J7040; J0696; 81003; 81015